=== PATIENT | female | born 1985 | race Caucasian/White ===

== ENCOUNTER 2021-07-08 16:22 | Emergency (ER) | payer BC, SELFPAY ==
[2021-07-08 16:49] VITALS: BP 127/86; PULSE 81; RESP 16; TEMP 36.3; O2SAT 99; BMI 26.4
[2021-07-08 17:23] LABS: Bilirubin Urine Neg (Negative); Blood Urine Neg (Negative); Glucose Urine UA Norm (Normal); Ketones Urine Negative (Negative); Leukocyte Esterase Urine Negative (Negative); Nitrate Urine Negative (Negative); Protein Urine Neg (Negative); Specific Gravity, Urine 1.005 (1.005-1.030); Urine Appearance Clear (CLEAR); Urine Color Yellow (Yellow); Urobilinogen Urine Norm (Negative); pH Urine 6.5 (5-7)
[2021-07-08 17:30] LABS: Bacteria Urine TRACE /hpf; Mucus Urine N /hpf; Other Crystals Urine N /hpf; Uric Acid Crystals Urine N /hpf
[2021-07-08 17:31] LABS: Add Urine Culture? No
--- NOTE | 2021-07-08 17:39 | ED_ITS ---
Documented by User: Parminder Vogt DO 07/09/21 09:12 HPI - Abdominal Pain General: Chief Complaint: Abdominal Pain Stated Complaint: R SIDE ABD/BACK PAIN (6 HRS) Time Seen by Provider: 07/08/21 17:34 History of Present Illness: HPI narrative: 36-year-old female presents to the emergency room complaining of right upper quadrant abdominal pain radiating into her back. She has nausea with no vomiting also has loss of appetite she has had similar episodes in the past without the being is quite as intense.. She does remember any particular foods that seem to trigger it. Denies any dysuria urgency or frequency. No hematochezia or melena. She is not previously had any abdominal surgeries patient is her youngest child is 15 years old. MD elicited complaint: abdominal pain Pertinent past history: none Onset (ago): hour(s) Pain Consistency: constant Location: RUQ Severity: severe Quality: cramping and stabbing Radiation: R flank and back Exacerbating factors: eating Relieving factors: nothing Associated Symptoms: Reports anorexia, bloating, nausea and poor appetite; Denies belching, change in bowel habits, change in stool character, chills, coffee ground emesis, constipation, GI cramping, diarrhea, dyspepsia, dysuria, excessive flatus, fever(s), heartburn, hematochezia, hematuria, hematemesis, fecal incontinence, loose stools, melena, syncope and vomiting Review of Systems Const: Denies: fever(s) or chills ENMT: Denies: throat pain, ear or mastoid pain, nasal discharge or nasal congestion Card: Denies: syncope Resp: Denies: dyspnea, productive cough or non-productive cough GI: Reports: nausea and bloating; Denies: vomiting, hematemesis, coffee ground emesis, heartburn, diarrhea, constipation, GI cramping, belching, excessive flatus, fecal incontinence, change in bowel habits, change in stool character, hematochezia or melena : Denies: dysuria or hematuria Skin/Breast: Denies: rash or pruritus PFS ED PFSH: Social History Smoking and tobacco status: current every day smoker cigarettes Alcohol intake: never Additional social history: Well balanced diet Physical Exam Const: COMMON NORMALS: no acute distress GENERAL APPEARANCE: cooperative and comfortable ORIENTATION/CONSCIOUSNESS: Yes awake, Yes oriented to person, Yes oriented to place and Yes oriented to time HENMT: COMMON NORMALS: normocephalic, atraumatic and hearing grossly normal bilaterally HEAD & SCALP: normocephalic and atraumatic Neck/C-Spine: COMMON NORMALS: no JVD Resp: COMMON NORMALS: normal respiratory effort, No retractions, No use of accessory muscles and clear to auscultation bilaterally AUSCULTATION: clear to auscultation bilaterally Cardio: COMMON NORMALS: no JVD, regular rate, regular rhythm and No murmurs present (Cardio) RATE: regular rate RHYTHM: regular rhythm GI: COMMON NORMALS: No hepatosplenomegaly present AUSCULTATION: Yes normoactive bowel sounds PALPATION: Yes Tenderness to palpation present (GI) (Positive Case sign on exam) Details: RUQ, No Guarding due to palpation present (GI) and Yes No hepatosplenomegaly present Extremity: COMMON NORMALS: normal to inspection, capillary refill normal, no clubbing, cyanosis or edema, no calf tenderness and no pedal edema Neuro: SENSORIUM/ORIENTATION: Yes oriented to person, Yes oriented to place and Yes oriented to time Skin: COMMON NORMALS: no rashes or lesions noted GENERAL SKIN EXAM: no rashes or lesions noted Course Vital Signs: Vital signs: Vital Signs Temperature 97.3 F L 07/08/21 17:40 Pulse Rate 81 07/08/21 21:00 Respiratory Rate 16 07/08/21 21:00 Blood Pressure 124/71 07/08/21 21:00 Pulse Oximetry 100 07/08/21 21:00 MDM - Abdominal Pain MDM Narrative: Medical decision making narrative: Turned over to Dr. Fox at change of shift see his notes for final diagnosis and disposition. Lab Data: Labs: Lab Results 07/08/21 07/08/21 07/08/21 Range/Units 16:57 17:51 17:51 WBC 9.2 (4.0-10.0) 10^3/ uL RBC 4.37 (4.1-5.3) 10^6/u L Hgb 13.9 (11.5-15.3) g/dL Hct 43.2 (37.0-47.0) % MCV 98.9 (81-99) fL MCH 31.8 (28.0-34.0) pg MCHC 32.2 (30.0-36.0) g/dL RDW 12.4 (12.1-15.1) % Plt Count 275 (130-400) 10^3/c mm MPV 10.5 H (7.4-10.4) fL Neut % (Auto) 64.5 % Lymph % (Auto) 24.2 % Tate % (Auto) 4.6 % Eos % (Auto) 6.0 % Baso % (Auto) 0.5 % Neut # (Auto) 5.90 (1.8-7.7) 10^3/u L Lymph # (Auto) 2.2 (0.8-4.8) 10^3/u L Tate # (Auto) 0.4 (0.2-0.9) 10^3/u L Eos # (Auto) 0.6 (0.0-0.8) 10^3/u L Baso # (Auto) 0.1 (0.0-0.1) 10^3/u L Nucleated RBC % (a uto) 0 % Nucleated RBCs # 0.0 /100WBC Sodium 139 (136-145) mmol/L Potassium 4.0 (3.5-5.1) mmol/L Chloride 103 (98-107) mmol/L Carbon Dioxide 27 (22-29) mmol/L Anion Gap 13.0 (5-19) BUN 9 (6-20) mg/dL Creatinine 0.8 (0.5-0.9) mg/dL GFR Calculation 80.3 L (90-130) mL/min Glucose 80 (65-115) mg/dL Calculated Osmolal ity 286 (285-295) mOsm/k g Calcium 9.4 (8.5-10.5) mg/dL Total Bilirubin 0.2 (0.15-1.2) mg/dL AST 15 (0-32) U/L ALT 16 (0-33) U/L Alkaline Phosphata se 58 (35-105) IU/L Troponin T Baselin e (0-10) ng/L Total Protein 6.8 (6.6-8.7) g/dL Albumin 4.4 (3.5-5.2) g/dL Globulin 2.4 (1.3-4.6) g/dL Lipase 34 (13-60) U/L HCG, Qual (Negative) Urine Color Yellow (Yellow) Urine Appearance Clear (CLEAR) Urine pH 6.5 (5-7) Ur Specific Gravit y 1.005 (1.005-1.030) Urine Protein Neg (Negative) Urine Glucose (UA) Norm (Normal) Urine Ketones Negative (Negative) Urine Blood Neg (Negative) Urine Nitrate Negative (Negative) Urine Bilirubin Neg (Negative) Urine Urobilinogen Norm (Negative) mg/dL Ur Leukocyte Jennifer ase Negative (Negative) Urine RBC None (0-2) /hpf Urine WBC None (0-5) /hpf Ur Squamous Epith Cells None (0-5) /hpf Calcium Oxalate Cr ystal None /hpf Uric Acid Crystals N /hpf Triple Phos Daisy ls None /hpf Other Crystals N /hpf Amorphous Sediment Not Reportable Urine Bacteria Trace (NONE) /hpf Urine Mucus N /hpf 07/08/21 07/08/21 Range/Units 17:51 19:25 WBC (4.0-10.0) 10^3/ uL RBC (4.1-5.3) 10^6/u L Hgb (11.5-15.3) g/dL Hct (37.0-47.0) % MCV (81-99) fL MCH (28.0-34.0) pg MCHC (30.0-36.0) g/dL RDW (12.1-15.1) % Plt Count (130-400) 10^3/c mm MPV (7.4-10.4) fL Neut % (Auto) % Lymph % (Auto) % Tate % (Auto) % Eos % (Auto) % Baso % (Auto) % Neut # (Auto) (1.8-7.7) 10^3/u L Lymph # (Auto) (0.8-4.8) 10^3/u L Tate # (Auto) (0.2-0.9) 10^3/u L Eos # (Auto) (0.0-0.8) 10^3/u L Baso # (Auto) (0.0-0.1) 10^3/u L Nucleated RBC % (a uto) % Nucleated RBCs # /100WBC Sodium (136-145) mmol/L Potassium (3.5-5.1) mmol/L Chloride (98-107) mmol/L Carbon Dioxide (22-29) mmol/L Anion Gap (5-19) BUN (6-20) mg/dL Creatinine (0.5-0.9) mg/dL GFR Calculation (90-130) mL/min Glucose (65-115) mg/dL Calculated Osmolal ity (285-295) mOsm/k g Calcium (8.5-10.5) mg/dL Total Bilirubin (0.15-1.2) mg/dL AST (0-32) U/L ALT (0-33) U/L Alkaline Phosphata se (35-105) IU/L Troponin T Baselin e 6 (0-10) ng/L Total Protein (6.6-8.7) g/dL Albumin (3.5-5.2) g/dL Globulin (1.3-4.6) g/dL Lipase (13-60) U/L HCG, Qual Negative (Negative) Urine Color (Yellow) Urine Appearance (CLEAR) Urine pH (5-7) Ur Specific Gravit y (1.005-1.030) Urine Protein (Negative) Urine Glucose (UA) (Normal) Urine Ketones (Negative) Urine Blood (Negative) Urine Nitrate (Negative) Urine Bilirubin (Negative) Urine Urobilinogen (Negative) mg/dL Ur Leukocyte Jennifer ase (Negative) Urine RBC (0-2) /hpf Urine WBC (0-5) /hpf Ur Squamous Epith Cells (0-5) /hpf Calcium Oxalate Cr ystal /hpf Uric Acid Crystals /hpf Triple Phos Daisy ls /hpf Other Crystals /hpf Amorphous Sediment Urine Bacteria (NONE) /hpf Urine Mucus /hpf Discharge Plan Discharge Patient Disposition: Home Clinical Impression: Abdominal pain Condition: Stable Prescriptions: New Pepcid 20 mg tablet 20 mg PO BID PRN (Reason: abdominal pain) 42 Days Qty: 84 RF: 0 Maalox Advanced 1,000-60 mg tablet,chewable 1 tab PO TID PRN (Reason: abdominal pain) Qty: 30 RF: 0 No Action ibuprofen 800 mg tablet 800 mg PO Q8H PRN (Reason: Pain) RF: 0 escitalopram oxalate [Lexapro] 20 mg tablet 20 mg PO DAILY RF: 0 multivitamin Tablet 1 tab PO QAM RF: 0 glucosamine sulfate [Glucosamine] 500 mg tablet 500 mg PO BID RF: 0 aspirin [Aspirin Low Dose] 81 mg tablet,delayed release (DR/EC) 81 mg PO DAILY RF: 0 alprazolam 0.5 mg tablet 0.5 mg PO TID PRN (Reason: Anxiety) RF: 0 acetaminophen [Tylenol Extra Strength] 500 mg tablet 1,000 mg PO Q6H PRN (Reason: Pain) RF: 0 spironolactone 50 mg Tablet 50 mg PO DAILY RF: 0 Discharge Orders: Discharge ED (Routine); Ordered 07/08/21 Ordered By: Colten Fox Referrals: Julia Phan MD [Primary Care Provider] - Discharge Diet: Advance as tolerated and Usual diet Discharge Activity: Resume usual activity Patient Instructions: Abdominal Pain (ED) Activity Restrictions/Additional Instructions: Come back to the emergency room your pain worsens, if you have any nausea or vomiting, dark stool or blood in the stool or any new or concerning complaints. Sign Out Sign Out Data: Patient Sign Out occurred on 07/08/21 at 18:05. Patient's care was discussed, and care was transferred from to Colten Fox MD. Coding Level of Care Code ED Correctional Treatment Specialist for Chg Fwd Exam Comprehensive Documented by User: Colten Fox MD 07/08/21 19:43 HPI - Abdominal Pain General: Chief Complaint: Abdominal Pain Stated Complaint: R SIDE ABD/BACK PAIN (6 HRS) Time Seen by Provider: 07/08/21 17:34 PFSH ED PFSH: Social History Smoking and tobacco status: current every day smoker cigarettes Alcohol intake: never Additional social history: Well balanced diet Course Vital Signs: Vital signs: Vital Signs Temperature 97.3 F L 07/08/21 17:40 Pulse Rate 81 07/08/21 21:00 Respiratory Rate 16 07/08/21 21:00 Blood Pressure 124/71 07/08/21 21:00 Pulse Oximetry 100 07/08/21 21:00 MDM - Abdominal Pain MDM Narrative: Medical decision making narrative: 36F presenting with RUQ abdominal pain with nausea and cramps. +Case signs on exam. Workup today including US, blood work, EKG are wnl. Do not suspect acute intraabdomnial pathologies. Rx maalox and pepcid PRN pain. She is given strict return precaution for any worsening abdominal pain, nausea vomiting, signs of dehydration, or GI bleeding. Given patient follow up with PCP for any worsening symptoms. Patient tolerated p.o. in the emergency room. Symptoms improved with medicine today. Disposition: Discharge. Lab Data: Labs: Lab Results 07/08/21 07/08/21 07/08/21 Range/Units 16:57 17:51 17:51 WBC 9.2 (4.0-10.0) 10^3/ uL RBC 4.37 (4.1-5.3) 10^6/u L Hgb 13.9 (11.5-15.3) g/dL Hct 43.2 (37.0-47.0) % MCV 98.9 (81-99) fL MCH 31.8 (28.0-34.0) pg MCHC 32.2 (30.0-36.0) g/dL RDW 12.4 (12.1-15.1) % Plt Count 275 (130-400) 10^3/c mm MPV 10.5 H (7.4-10.4) fL Neut % (Auto) 64.5 % Lymph % (Auto) 24.2 % Tate % (Auto) 4.6 % Eos % (Auto) 6.0 % Baso % (Auto) 0.5 % Neut # (Auto) 5.90 (1.8-7.7) 10^3/u L Lymph # (Auto) 2.2 (0.8-4.8) 10^3/u L Tate # (Auto) 0.4 (0.2-0.9) 10^3/u L Eos # (Auto) 0.6 (0.0-0.8) 10^3/u L Baso # (Auto) 0.1 (0.0-0.1) 10^3/u L Nucleated RBC % (a uto) 0 % Nucleated RBCs # 0.0 /100WBC Sodium 139 (136-145) mmol/L Potassium 4.0 (3.5-5.1) mmol/L Chloride 103 (98-107) mmol/L Carbon Dioxide 27 (22-29) mmol/L Anion Gap 13.0 (5-19) BUN 9 (6-20) mg/dL Creatinine 0.8 (0.5-0.9) mg/dL GFR Calculation 80.3 L (90-130) mL/min Glucose 80 (65-115) mg/dL Calculated Osmolal ity 286 (285-295) mOsm/k g Calcium 9.4 (8.5-10.5) mg/dL Total Bilirubin 0.2 (0.15-1.2) mg/dL AST 15 (0-32) U/L ALT 16 (0-33) U/L Alkaline Phosphata se 58 (35-105) IU/L Troponin T Baselin e (0-10) ng/L Total Protein 6.8 (6.6-8.7) g/dL Albumin 4.4 (3.5-5.2) g/dL Globulin 2.4 (1.3-4.6) g/dL Lipase 34 (13-60) U/L HCG, Qual (Negative) Urine Color Yellow (Yellow) Urine Appearance Clear (CLEAR) Urine pH 6.5 (5-7) Ur Specific Gravit y 1.005 (1.005-1.030) Urine Protein Neg (Negative) Urine Glucose (UA) Norm (Normal) Urine Ketones Negative (Negative) Urine Blood Neg (Negative) Urine Nitrate Negative (Negative) Urine Bilirubin Neg (Negative) Urine Urobilinogen Norm (Negative) mg/dL Ur Leukocyte Jennifer ase Negative (Negative) Urine RBC None (0-2) /hpf Urine WBC None (0-5) /hpf Ur Squamous Epith Cells None (0-5) /hpf Calcium Oxalate Cr ystal None /hpf Uric Acid Crystals N /hpf Triple Phos Daisy ls None /hpf Other Crystals N /hpf Amorphous Sediment Not Reportable Urine Bacteria Trace (NONE) /hpf Urine Mucus N /hpf 07/08/21 07/08/21 Range/Units 17:51 19:25 WBC (4.0-10.0) 10^3/ uL RBC (4.1-5.3) 10^6/u L Hgb (11.5-15.3) g/dL Hct (37.0-47.0) % MCV (81-99) fL MCH (28.0-34.0) pg MCHC (30.0-36.0) g/dL RDW (12.1-15.1) % Plt Count (130-400) 10^3/c mm MPV (7.4-10.4) fL Neut % (Auto) % Lymph % (Auto) % Tate % (Auto) % Eos % (Auto) % Baso % (Auto) % Neut # (Auto) (1.8-7.7) 10^3/u L Lymph # (Auto) (0.8-4.8) 10^3/u L Tate # (Auto) (0.2-0.9) 10^3/u L Eos # (Auto) (0.0-0.8) 10^3/u L Baso # (Auto) (0.0-0.1) 10^3/u L Nucleated RBC % (a uto) % Nucleated RBCs # /100WBC Sodium (136-145) mmol/L Potassium (3.5-5.1) mmol/L Chloride (98-107) mmol/L Carbon Dioxide (22-29) mmol/L Anion Gap (5-19) BUN (6-20) mg/dL Creatinine (0.5-0.9) mg/dL GFR Calculation (90-130) mL/min Glucose (65-115) mg/dL Calculated Osmolal ity (285-295) mOsm/k g Calcium (8.5-10.5) mg/dL Total Bilirubin (0.15-1.2) mg/dL AST (0-32) U/L ALT (0-33) U/L Alkaline Phosphata se (35-105) IU/L Troponin T Baselin e 6 (0-10) ng/L Total Protein (6.6-8.7) g/dL Albumin (3.5-5.2) g/dL Globulin (1.3-4.6) g/dL Lipase (13-60) U/L HCG, Qual Negative (Negative) Urine Color (Yellow) Urine Appearance (CLEAR) Urine pH (5-7) Ur Specific Gravit y (1.005-1.030) Urine Protein (Negative) Urine Glucose (UA) (Normal) Urine Ketones (Negative) Urine Blood (Negative) Urine Nitrate (Negative) Urine Bilirubin (Negative) Urine Urobilinogen (Negative) mg/dL Ur Leukocyte Jennifer ase (Negative) Urine RBC (0-2) /hpf Urine WBC (0-5) /hpf Ur Squamous Epith Cells (0-5) /hpf Calcium Oxalate Cr ystal /hpf Uric Acid Crystals /hpf Triple Phos Daisy ls /hpf Other Crystals /hpf Amorphous Sediment Urine Bacteria (NONE) /hpf Urine Mucus /hpf Imaging Data ^: Other Imaging: Radiologist's impression: [address] [id number] ReportSigned Patient: Yoandy Tate #: [id number]: 1985Acc t#:[id number]/Sex: 36 / FADM Date: 07/08/21Loc: ERRoom/Bed:Attending Dr: Ordering Provider/Ordering MD: Parminder Vogt DO Date of Service: 07/08/21 Procedure(s): US gall bladder [id number] Accession Number(s): [id number] Report Number: [id number] PROCEDURE INFORMATION: Exam: US Abdomen, Limited; Right Upper Quadrant Exam date and time: 07/08/2021 5:43 PM Age: 36 years old Clinical indication: Abdominal pain; Acute; Patient HX: Sudden on set ruq pain; Additional info: Upper quadrant abdominal pain TECHNIQUE: Imaging protocol: US abdomen. Real time ultrasound with image documentation. Limited exam focused on the right upper quadrant. COMPARISON: US gall bladder [id number] 01/18/2016 12:17 PM FINDINGS: Liver: Normal. No masses. Gallbladder: Normal. No gallstones. There is no gallbladder wall thickening. Common bile duct: Normal. No stones. No dilation. Pancreas: Pancreas obscured by bowel gas. Right kidney: Normal. No mass. No hydronephrosis. Aorta: Proximal abdominal aorta patent with normal diameter. Inferior vena cava: Proximal IVC patent with normal diameter. Intraperitoneal space: No abdominal fluid collection. US/US gall bladder [id number] IMPRESSION: No acute findings. Dictated By:Frances Haddad By:Frances Haddad Date/Time:07/08/211928DD/ 26 Discharge Plan Discharge Patient Disposition: Home Clinical Impression: Abdominal pain Condition: Stable Prescriptions: New Pepcid 20 mg tablet 20 mg PO BID PRN (Reason: abdominal pain) 42 Days Qty: 84 RF: 0 Maalox Advanced 1,000-60 mg tablet,chewable 1 tab PO TID PRN (Reason: abdominal pain) Qty: 30 RF: 0 No Action ibuprofen 800 mg tablet 800 mg PO Q8H PRN (Reason: Pain) RF: 0 escitalopram oxalate [Lexapro] 20 mg tablet 20 mg PO DAILY RF: 0 multivitamin Tablet 1 tab PO QAM RF: 0 glucosamine sulfate [Glucosamine] 500 mg tablet 500 mg PO BID RF: 0 aspirin [Aspirin Low Dose] 81 mg tablet,delayed release (DR/EC) 81 mg PO DAILY RF: 0 alprazolam 0.5 mg tablet 0.5 mg PO TID PRN (Reason: Anxiety) RF: 0 acetaminophen [Tylenol Extra Strength] 500 mg tablet 1,000 mg PO Q6H PRN (Reason: Pain) RF: 0 spironolactone 50 mg Tablet 50 mg PO DAILY RF: 0 Discharge Orders: Discharge ED (Routine); Ordered 07/08/21 Ordered By: Colten Fox Referrals: Julia Phan MD [Primary Care Provider] - Discharge Diet: Advance as tolerated and Usual diet Discharge Activity: Resume usual activity Patient Instructions: Abdominal Pain (ED) Activity Restrictions/Additional Instructions: Come back to the emergency room your pain worsens, if you have any nausea or vomiting, dark stool or blood in the stool or any new or concerning complaints. Sign Out Sign Out Data: Patient Sign Out occurred on 07/08/21 at 18:05. Patient's care was discussed, and care was transferred from to Colten Fox MD. Coding Level of Care Code ED Correctional Treatment Specialist for Christian Fwd Exam Comprehensive
[2021-07-08 17:40] VITALS: BP 123/66; PULSE 71; TEMP 36.3; O2SAT 100
--- NOTE | 2021-07-08 17:43 | USR_ITS ---
PROCEDURE INFORMATION: Exam: US Abdomen, Limited; Right Upper Quadrant Exam date and time: 07/08/2021 5:43 PM Age: 36 years old Clinical indication: Abdominal pain; Acute; Patient HX: Sudden on set ruq pain; Additional info: Upper quadrant abdominal pain TECHNIQUE: Imaging protocol: US abdomen. Real time ultrasound with image documentation. Limited exam focused on the right upper quadrant. COMPARISON: US gall bladder [id number] 01/18/2016 12:17 PM FINDINGS: Liver: Normal. No masses. Gallbladder: Normal. No gallstones. There is no gallbladder wall thickening. Common bile duct: Normal. No stones. No dilation. Pancreas: Pancreas obscured by bowel gas. Right kidney: Normal. No mass. No hydronephrosis. Aorta: Proximal abdominal aorta patent with normal diameter. Inferior vena cava: Proximal IVC patent with normal diameter. Intraperitoneal space: No abdominal fluid collection. US/US gall bladder [id number] IMPRESSION: No acute findings.
[2021-07-08] MEDS: sodium chloride 0.9% 1,000 ML 999 ML IV (17:51)
[2021-07-08] MEDS: ondansetron 2 mg/ML SDV 2 mL 4 MG IVP (17:52)
[2021-07-08 18:01] VITALS: RESP 16
[2021-07-08] MEDS: HYDROmorphone 1 mg/mL INJ 1 mL IVP (18:01)
[2021-07-08 18:13] LABS: Basophils # 0.1 10^3/uL (0.0-0.1); Basophils % 0.5 %; Eosinophils # 0.6 10^3/uL (0.0-0.8); Hematocrit 43.2 % (37.0-47.0); Hemoglobin 13.9 g/dL (11.5-15.3); Lymphocytes # 2.2 10^3/uL (0.8-4.8); Lymphocytes % 24.2 %; Mean Corpuscular HGB Conc 32.2 g/dL (30.0-36.0); Mean Corpuscular Hemoglobin 31.8 pg (28.0-34.0); Mean Corpuscular Volume 98.9 fL (81-99); Mean Platelet Volume 10.5 fL (7.4-10.4); Monocytes # 0.4 10^3/uL (0.2-0.9); Monocytes % 4.6 %; Neutrophils % 64.5 %; Nucleated Red Blood Cells % 0 %; Platelet Count 275 10^3/cmm (130-400); Red Blood Count 4.37 10^6/uL (4.1-5.3); Red Cell Distribution Width 12.4 % (12.1-15.1); White Blood Count 9.2 10^3/uL (4.0-10.0)
[2021-07-08 18:45] LABS: Alanine Aminotransferase 16 U/L (0-33); Albumin Level 4.4 g/dL (3.5-5.2); Alkaline Phosphatase 58 IU/L (35-105); Aspartate Amino Transferase 15 U/L (0-32); Blood Urea Nitrogen 9 mg/dL (6-20); Calcium 9.4 mg/dL (8.5-10.5); Carbon Dioxide 27 mmol/L (22-29); Chloride 103 mmol/L (98-107); Globulin 2.4 g/dL (1.3-4.6); Glomerular Filtration Rate 80.3 mL/min (90-130); Glucose 80 mg/dL (65-115); Lipase 34 U/L (13-60); Osmolality Calculated 286 mOsm/kg (285-295); Sodium 139 mmol/L (136-145); Total Bilirubin 0.2 mg/dL (0.15-1.2); Total Protein 6.8 g/dL (6.6-8.7)
[2021-07-08 18:46] LABS: HCG, Serum Qual Negative (Negative)
--- NOTE | 2021-07-08 18:58 | ECG_ITS ---
[facility] Test Date: 2021-07-08 Pat Name: Yoandy Tate Department: Room: Gender: Female Vitamin Manager: : 1985 Requested By: Colten Fox Order Number: [id number] Salma MD: Mikayla Lewis M.D. Measurements Intervals [place] Rate: 61 P: 60 IA: 159 QRS: 43 QRSD: 95 T: 54 QT: 411 QTc: 416 Interpretive Statements SINUS RHYTHM No previous ECG available for comparison Electronically Signed On 07-09-2021 7:34:42 CDT by Mikayla Lewis M.D. [id number]
--- NOTE | 2021-07-08 19:11 | PC.NURSE ---
REport from KOFI Croft
[2021-07-08 20:11] LABS: Troponin(5th) Baseline 6 ng/L (0-10)
[2021-07-08] MEDS: famotidine 20 mg Tablet PO (20:31)
[2021-07-08] MEDS: alum-mag-hydroxide-sime 30 mL UDC PO (20:31)
[2021-07-08 20:45] VITALS: BP 125/70; PULSE 80; RESP 16; O2SAT 100
[2021-07-08 21:00] VITALS: BP 124/71; PULSE 81; RESP 16; O2SAT 100
== END 2021-07-08 21:01 | disposition home or self-care (01) ==
PROVIDERS: Family Medicine; Emergency Provider Emergency Medicine; PCP Family Medicine
DX: R10.11 Right upper quadrant pain (principal); F17.210 Nicotine dependence, cigarettes, uncomplicated; Z79.82 Long term (current) use of aspirin
CPT/HCPCS: 76705; 80053; 81001; 83690; 84484; 84703; 85025; 93005; 96361; 96374; 96375; 99284; J1170; J2405; J7030

== ENCOUNTER → 2022-01-08 00:01 | Outpatient (BNVA) | payer OTHER, SELFPAY | PROVIDERS: PCP Family Medicine; Visit Provider Surgery | DX: Z01.812 Encounter for preprocedural laboratory examination (principal); Z20.822 Contact with and (suspected) exposure to COVID-19 | CPT/HCPCS: 87635 ==

== ENCOUNTER 2022-01-14 05:45 | Day surgery (SDC) | payer OTHER, SELFPAY ==
[2022-01-12 12:55] VITALS: BMI 25.7
[2022-01-14] VITALS (10 sets, daily range): BP systolic 107–127; BP diastolic 66–79; PULSE 43–71; RESP 16–18; TEMP 36.2–36.8; O2SAT 95–100
[2022-01-14] MEDS: sodium chloride 0.9% 1,000 ML 30 ML IV (06:39)
--- NOTE | 2022-01-14 07:00 | P.HP_ITS ---
Same Day Surgery H&P Indication for Procedure/HPI DATE OF PROCEDURE: January 14, 2022 CHIEF COMPLAINT/INDICATIONFOR SURGICAL PROCEDURE: lap earle PREOP DIAGNOSIS: Chronic cholecystitis PLANNED PROCEDURE: Operation Date: 01/14/22 07:00 Proposed Procedures p Laparoscopic Cholecystectomy 53294/57247/r10.11(Not Applicable) - Enio Pan MD s EGD(Not Applicable) - Enio Pan MD Medications/Allergies* Home Medications Medication Instructions Recorded Confirmed Type acetaminophen 500 mg tablet 1,000 mg PO Q6H PRN 12/05/19 01/14/22 History (Tylenol Extra Strength) alprazolam 0.5 mg tablet 0.5 mg PO TID PRN 12/05/19 01/14/22 History aspirin 81 mg tablet,delayed 81 mg PO DAILY tab 12/05/19 01/12/22 History release (Aspirin Low Dose) escitalopram oxalate 20 mg tablet 20 mg PO DAILY tab 12/05/19 01/14/22 History (Lexapro) glucosamine sulfate 500 mg tablet 500 mg PO BID 12/05/19 01/12/22 History (Glucosamine) ibuprofen 800 mg tablet 800 mg PO Q8H PRN 12/05/19 01/14/22 History multivitamin 1 tab PO QAM 12/05/19 01/14/22 History spironolactone 50 mg tablet 50 mg PO DAILY 07/08/21 01/14/22 History lithium carbonate 300 mg capsule 300 mg PO BID 01/04/22 01/14/22 History Allergies/Adverse Reactions Allergy/AdvReac Type Severity Reaction Status Date / Time morphine Allergy Swelling, Verified 01/04/22 10:32 hives tuberculin, purified protein Allergy swelling/re Verified 01/04/22 10:32 deriva dness [From Tubersol] Current Medications: Generic Name Dose Route Start Last Admin Trade Name Freq PRN Reason Stop Dose Admin Sodium Chloride 1,000 mls @ 30 mls/hr 01/14/22 06:00 01/14/22 06:39 Sodium Chloride 0.9% IV 01/15/22 05:59 30 mls/hr .Q24H KARSTEN Administration Pertinent History/Comorbid Conditions* Medical History (Updated 01/04/22 @ 10:41 by Enio Pan MD) Depression Surgical History (Updated 01/04/22 @ 10:41 by Enio Pan MD) History of breast augmentation 11/2017 History of section 2--Elective repeat C/S with tubal ligation. Performed at [facility] in [place], [place]. History of hysterectomy History of hysteroscopy 07/25/2019- with endometrial ablation via novasure; performed by Dr. Carranza at [facility] History of knee surgery Bilateral--x1-[facility] in [place], [place] x1-[facility] in [place], [place] Hx of tubal ligation 12/08/2005- Performed by Dr. Monson at [facility] in [place], [place]. Social History Smoking and tobacco status: former smoker Alcohol intake: never Additional social history: Well balanced diet Pertinent Exam Findings alert, oriented x 3 and regular rate & rhythm Recommendations Surgery/Procedure today Coding Level of Care Code Acute Client Hr Manager for Chg Sussy
--- NOTE | 2022-01-14 07:02 | ANES.PREANE2 ---
Pre-Anesthetic Assessment Height/Weight: Height 1.8 m Weight 83.518 kg Temp Pulse Resp BP Pulse Ox 97.8 F 71 18 116/66 99 01/14/22 06:06 01/14/22 06:06 01/14/22 06:06 01/14/22 06:06 01/14/22 06:06 Preop Diagnosis: Chronic cholecystitis Operation Date: 01/14/22 07:00 Proposed Procedures p Laparoscopic Cholecystectomy 56561/61322/r10.11(Not Applicable) - Enio Pan MD s EGD(Not Applicable) - Enio Pan MD Familial anesthetic complications: None Was Beta Lee taken within 24 hours: N/A Was Clonidine taken within 24 hours: N/A Last intake: Intake Last Liquid Date 01/13/22 Last Liquid Time 20:00 Last Solid Date 01/13/22 Last Solid Time 18:00 Social No alcohol and No tobacco Exam alert, oriented x 3, clear to auscultation bilaterally and regular rate & rhythm Airway Submandibular: within normal limits Cervical ROM: within normal limits Mallampati: Class II Dentition: full Neuropsych Anxiety and Depression Anesthetic Plan ASA status: 2 Anesthesia: General Risk of > 500 ml blood loss (7ml/kg in children): No Medications/Allergies Home Medications Medication Instructions Recorded Confirmed Last Taken Type acetaminophen 500 mg tablet 1,000 mg PO Q6H PRN 12/05/19 01/14/22 01/14/22 History (Tylenol Extra Strength) alprazolam 0.5 mg tablet 0.5 mg PO TID PRN 12/05/19 01/14/22 Unknown History aspirin 81 mg tablet,delayed 81 mg PO DAILY tab 12/05/19 01/12/22 01/04/22 History release (Aspirin Low Dose) escitalopram oxalate 20 mg tablet 20 mg PO DAILY tab 12/05/19 01/14/22 01/13/22 History (Lexapro) glucosamine sulfate 500 mg tablet 500 mg PO BID 12/05/19 01/12/22 01/04/22 History (Glucosamine) ibuprofen 800 mg tablet 800 mg PO Q8H PRN 12/05/19 01/14/22 01/13/22 History multivitamin 1 tab PO QAM 12/05/19 01/14/22 07/08/21 History calcium carbonate 1,000 1 tab PO TID PRN #30 tab 07/08/21 01/12/22 Unknown Rx mg-simethicone 60 mg chewable tablet (Maalox Advanced) spironolactone 50 mg tablet 50 mg PO DAILY 07/08/21 01/14/22 01/13/22 History lithium carbonate 300 mg capsule 300 mg PO BID 01/04/22 01/14/22 01/13/22 History Allergies Allergy/AdvReac Type Severity Reaction Status Date / Time morphine Allergy Swelling, Verified 01/04/22 10:32 hives tuberculin, purified protein Allergy swelling/re Verified 01/04/22 10:32 deriva dness [From Tubersol] Current Medications Generic Name Dose Route Start Last Admin Trade Name Freq PRN Reason Stop Dose Admin Sodium Chloride 1,000 mls @ 30 mls/hr 01/14/22 06:00 01/14/22 06:39 Sodium Chloride 0.9% IV 01/15/22 05:59 30 mls/hr .Q24H KARSTEN Administration PFSH Anesthesia Medical History Depression Surgical History History of breast augmentation 11/2017 History of section 2--Elective repeat C/S with tubal ligation. Performed at [facility] in [place], [place]. History of hysterectomy History of hysteroscopy 07/25/2019- with endometrial ablation via novasure; performed by Dr. Carranza at [facility] History of knee surgery Bilateral--x1-[facility] in [place], [place] x1-[facility] in [place], [place] Hx of tubal ligation 12/08/2005- Performed by Dr. Monson at [facility] in [place], [place]. Social History Smoking and tobacco status: former smoker Alcohol intake: never Additional social history: Well balanced diet Data Anesthesia Cardiac Studies: No Data to Display
[2022-01-14] MEDS: scopolamine 1.5 Patch 1 PATCH TRANSDERMA (07:06)
--- NOTE | 2022-01-14 07:49 | PM.OP ---
Operative Report Date of procedure: January 14, 2022 Pre-op diagnosis: Chronic cholecystitis Post-op diagnosis: 1. Gastric erosions in the antrum, biopsies obtained with cold biopsy forceps 2. Chronic cholecystitis Procedure done: 1. Esophagogastroduodenoscopy with biopsy 2. Laparoscopic cholecystectomy Specimens removed/disposition: 1. Antral biopsy for H. pylori 2. Gallbladder Surgeon: Enio Pan Anesthesia: General Condition: stable Disposition: PACU Procedure: The patient was taken to the operating room and was intubated under general anesthesia and a bite block was placed. A gastroscope was introduced and advanced up to second portion of the duodenum and slowly withdrawn. Duodenum second portion: Normal Duodenal bulb: Normal Stomach Fundus: Normal body: Normal Antrum: Multiple gastric erosions, biopsies obtained with cold biopsy forceps Pylorus: Normal Esophagus GE junction: Normal at 40 cm Rest of esophagus: Normal After the antibiotic had been administered, the abdomen was prepped and draped in a sterile manner. Using a #15 blade, a 1 centimeter infraumbilical curvilinear incision was made and using an open Shruthi technique the peritoneal cavity was entered. A 10 millimeter port was placed and 15 millimeters of pneumoperitoneum was created. A 10 millimeter, 30 degrees scope was then introduced. Three 5 millimeter ports were placed in the epigastric, midclavicular and the anterior axillary line two fingerbreadths below the costal margin on the right side under the direct visualization. Ratcheted forceps were introduced into the lateral most port and was used to retract the fundus of the gallbladder cephalad and using forceps the infundibulum of the gallbladder was retracted laterally. Using L-hook cautery the peritoneum overlying the Calot's triangle was opened medially and laterally until the cystic duct and the cystic artery were skeletonized. Dissection was carried along the body of the gallbladder and after ensuring critical view of safety, 4 clips applied on the cystic duct and 3 clips applied on the cystic artery and cut leaving, 3 clips on the remaining portion of the duct and 2 clips on the remaining portion of the artery. The rest of the gallbladder was dissected off the liver using L-hook cautery. There was no bleeding or bile leaking noted from the gallbladder fossa and the clips appeared to be in place. An EndoCatch bag was introduced to remove the gallbladder. All the ports were removed under direct visualization and there was no bleeding noted from the port sites. The fascia of the umbilicus was closed using [id number] 0 Vicryl sutures and the subcutaneous tissue was approximated using 3-0 Vicryl sutures. The skin at all four ports were closed using 4-0 Monocryl and Dermabond. A total of 10 millimeters of 0.5% Marcaine was infiltrated around the port sites. The patient was stable throughout the procedure.
[2022-01-14] MEDS: HYDROmorphone 1 mg/mL INJ 1 mL 0.5 MG IVP (08:24)
[2022-01-14] MEDS: HYDROcodone-acetaminophen 5-325 mg Tablet 1 TAB PO (09:21)
== END 2022-01-14 09:39 | disposition home or self-care (01) ==
PROVIDERS: PCP Family Medicine; Visit Provider Surgery
PROC: 0FT44ZZ Resection of Gallbladder, Percutaneous Endoscopic Approach (ICD-10-PCS; CPT 47562; principal; 2022-01-14 07:00)
PROC: 0DJ08ZZ Inspection of Upper Intestinal Tract, Via Natural or Artificial Opening Endoscopic (ICD-10-PCS; CPT 43235; 2022-01-14 07:00)
DX: K81.1 Chronic cholecystitis (principal); K29.70 Gastritis, unspecified, without bleeding; K25.7 Chronic gastric ulcer without hemorrhage or perforation; F32.9 Major depressive disorder, single episode, unspecified; Z87.891 Personal history of nicotine dependence; Z79.82 Long term (current) use of aspirin
CPT/HCPCS: 43239; 47562; 88304; 88305; 88342; J0690; J1100; J1170; J1200; J1885; J2250; J2370; J2405; J2704; J2710; J3010; J3490; J7030

== ENCOUNTER 2025-05-15 13:59 | Outpatient (CLI) | payer OTHER, SELFPAY ==
--- NOTE | 2025-05-15 14:04 | MM_ITS ---
WS: [id number] BILATERAL 3D TOMOSYNTHESIS DIGITAL SCREENING MAMMOGRAPHY WITH CAD CLINICAL INFORMATION: SCREENING HISTORY: Screening mammogram. No current complaints. COMPARISON: Baseline TECHNIQUE: Bilateral CC and MLO views. FINDINGS: Bilateral breast implants appear intact. Scattered fibroglandular densities bilaterally. No suspicious focal mass, asymmetry, calcifications, or architectural distortion. No evidence of malignancy. MM/MM [facility] tomosynthesis [id number] IMPRESSION: DENSITY: There are scattered areas of fibroglandular density. BI-RADS: 2 - Benign. FOLLOW UP: 1 Year Follow-up Recommend return to annual screening mammography.
== END 2025-05-15 14:00 | disposition home or self-care (01) ==
PROVIDERS: PCP Family Medicine; Visit Provider Family Medicine
DX: Z12.31 Encounter for screening mammogram for malignant neoplasm of breast (principal)
CPT/HCPCS: 77063; 77067